=== PATIENT | female | born 1990 | race Caucasian/White ===

== ENCOUNTER → 2020-12-16 | Outpatient (REF) | payer BC | LOC: M LAB REF 16:00 | PROVIDERS: ATTEND Nurse Practitioner Family | DX: R11.2 Nausea with vomiting, unspecified (principal) ==

== ENCOUNTER → 2021-01-04 | Outpatient (CLI) | payer BC ==
[2021-01-04 18:14] LABS: BASO % 0.2 % (0.0-1.0); EOS % 0.3 % (0.0-3.0); HEMOGLOBIN 12.4 g/dl (12.0-15.5); MEAN CORPUSCULAR HEMOGLOBIN 28.6 pg (27.0-33.0); MEAN CORPUSCULAR HGB CONC 32.6 g/dl (32.0-36.5); MEAN CORPUSCULAR VOLUME 87.6 fl (80.0-96.0); MONO # 0.9 10^3/uL (0.0-0.8); MONO % 7.3 % (2.0-8.0); NEUTROPHILS % 74.9 % (36.0-66.0); PLATELET COUNT, AUTOMATED 336 10^3/uL (150-450); RED BLOOD COUNT 4.34 10^6/uL (4.00-5.40)
[2021-01-04 19:24] LABS: HEPATITIS C VIRUS ABY INDEX < 0.0 INDEX (<0.8); HIV 1&2 SCREEN CENTAUR NEGATIVE (NEGATIVE)
[2021-01-04 20:31] LABS: GC DNA AMPLIFICATION NEGATIVE (NEGATIVE)
== END ==
LOC: M PLALAB 15:47
PROVIDERS: ATTEND Advanced Practice Midwife
DX: Z34.91 Encounter for supervision of normal pregnancy, unspecified, first trimester (principal); Z3A.08 8 weeks gestation of pregnancy

== ENCOUNTER → 2021-01-30 | Outpatient (CLI) | payer BC | LOC: M PLALAB 10:11 | PROVIDERS: ATTEND Obstetrics & Gynecology | DX: Z34.81 Encounter for supervision of other normal pregnancy, first trimester (principal) ==

== ENCOUNTER → 2021-03-28 | Outpatient (CLI) | payer BC ==
--- NOTE | 2021-03-28 17:17 | REP ---
INDICATION: ANATOMY. COMPARISON: None. TECHNIQUE: Real-time sonographic evaluation of the gravid uterus performed. FINDINGS: Estimated gestational age is20 weeks 5 days, EDC 08/10/2021. Today's measurements indicate appropriate growth. Presentation: Variable Placenta posterior, grade 0, without evidence of placenta previa. heart rate is recorded at 139 beats per minute. Amniotic fluid is subjectively normal. Closed cervical length is measured at 3.7 cm. Biometry chart: BPD: 49 mm, 20 weeks 5 days, 49th percentile. HC: 186 mm, 20 weeks 6 days, 55th percentile AC: 164 mm, 21 weeks 3 days, 66th percentile Femur length: 36 mm, 21 weeks 3 days, 68th percentile HC to AC ratio: 1.13, normal range 1.06-1.24. Estimated weight: 418g, 79th percentile. anatomy: Cranium: Grossly normal Lateral Ventricles/Choroid Plexus: Grossly normal Posterior Fossa/Cerebellum: Grossly normal Nose/lips/profile: Grossly normal Four chamber heart: Not well seen due to position Right ventricular outflow tract: Not well seen due to position Left ventricular outflow tract: Not well seen due to position Left-sided stomach: Grossly normal Kidneys: Grossly normal Bladder: Grossly normal Cord Insertion: Grossly normal 3 vessel cord: Grossly normal Spine: Grossly normal IMPRESSION: Viable single intrauterine gestation as above. <Electronically signed by Gurmeet Malone > 03/28/21 [id number]
== END ==
LOC: M WHC 10:15
PROVIDERS: ATTEND Advanced Practice Midwife
DX: Z36.89 Encounter for other specified antenatal screening (principal); Z3A.20 20 weeks gestation of pregnancy

== ENCOUNTER → 2021-04-25 | Outpatient (CLI) | payer BC ==
--- NOTE | 2021-04-25 13:57 | REP ---
INDICATION: F/U ANATOMY COMPARISON: 03/28/2021 TECHNIQUE: Transabdominal obstetrical ultrasound with color Doppler evaluation. FINDINGS: Examination demonstrates a single live intrauterine in cephalic presentation. motion is identified by technologist. Placenta is noted posterior and grade 1 without evidence for placenta previa or abruption. Amniotic fluid volume is normal. Cervix measures 4.7 cm in length and appears closed.. Selected gestational age: 24 weeks 5 days with DREA 08/10/2021. Gestational age by current measurements 24 weeks 4 days with DREA 08/11/2021. FHR equals 135 beats per minute. Estimated weight 684 grams (25thpercentile). Anatomical assessment demonstrates normal structures including cranium, choroid plexus, cavum, cerebellum/posterior fossa, facial features, lungs, cardiac outflow tracts, diaphragm, stomach, cord insertion/three-vessel cord, kidneys/bladder, spine, and extremities. IMPRESSION: Single live intrauterine in cephalic presentation demonstrating appropriate interval growth. Continued limited evaluation of the heart due to positioning. <Electronically signed by Isrrael Reyes > 04/25/21 [id number]
== END ==
LOC: M WHC 10:18
PROVIDERS: ATTEND Obstetrics & Gynecology
DX: Z34.82 Encounter for supervision of other normal pregnancy, second trimester (principal); Z36.2 Encounter for other antenatal screening follow-up; Z3A.24 24 weeks gestation of pregnancy

== ENCOUNTER → 2021-05-09 | Outpatient (CLI) | payer BC ==
--- NOTE | 2021-05-09 11:46 | REP ---
INDICATION: F/U ANATOMY COMPARISON: 04/25/2021 TECHNIQUE: Transabdominal obstetrical ultrasound with color Doppler evaluation. FINDINGS: Examination demonstrates a single live intrauterine in variable presentation. motion is identified by technologist. Placenta is noted posterior and grade 1 without evidence for placenta previa or abruption. Amniotic fluid volume is normal. Cervix measures 4.4 cm in length and appears closed.. Selected gestational age: 26 weeks 5 days with DREA 08/10/2021. Gestational age by current measurements 27 weeks 1 day with DREA 08/07/2021. FHR equals 138 beats per minute. Estimated weight 1008 grams (49thpercentile). Anatomical assessment demonstrates normal structures including heart/ventricular outflow tracts.. IMPRESSION: Single live intrauterine in variable presentation demonstrating appropriate estimated weight. In conjunction with prior examination anatomical assessment is complete and normal. <Electronically signed by Isrrael Reyes > 05/09/21 [id number]
== END ==
LOC: M WHC 10:50
PROVIDERS: ATTEND Obstetrics & Gynecology
DX: Z34.82 Encounter for supervision of other normal pregnancy, second trimester (principal); Z36.2 Encounter for other antenatal screening follow-up; Z3A.26 26 weeks gestation of pregnancy

== ENCOUNTER → 2021-05-18 | Outpatient (CLI) | payer BC ==
[2021-05-18 13:50] LABS: HEMATOCRIT 32.1 % (36.0-47.0); HEMOGLOBIN 10.4 g/dl (12.0-15.5); MEAN CORPUSCULAR HGB CONC 32.4 g/dl (32.0-36.5); MEAN CORPUSCULAR VOLUME 89.4 fl (80.0-96.0); PLATELET COUNT, AUTOMATED 288 10^3/uL (150-450); RED BLOOD COUNT 3.59 10^6/uL (4.00-5.40); WHITE BLOOD COUNT 14.4 10^3/uL (4.0-10.0)
== END ==
LOC: M PLALAB 10:43
PROVIDERS: ATTEND Obstetrics & Gynecology
DX: Z36.89 Encounter for other specified antenatal screening (principal); Z3A.00 Weeks of gestation of pregnancy not specified

== ENCOUNTER → 2021-07-12 | Outpatient (REF) | payer BC | LOC: M PLALAB 10:12 | PROVIDERS: ATTEND Advanced Practice Midwife | DX: Z34.83 Encounter for supervision of other normal pregnancy, third trimester (principal); Z36.85 Encounter for antenatal screening for Streptococcus B ==

== ENCOUNTER 2021-08-11 16:33 | Inpatient (IN) | payer BC ==
[~2021-08-11] VITALS: Ht 162.6 cm; Wt 87.9 kg
[2021-08-11] VITALS (16 sets, daily range): BP systolic 134–190; BP diastolic 68–103
[2021-08-11] MEDS ORDERED: LACTATED RINGER'S 1000 ML IV STA (17:36)
[2021-08-11] MEDS ORDERED: TRANEXAMIC ACID INJection 1,000 MG in NS 100 ML IV PRN (17:40)
[2021-08-11] MEDS ORDERED: LR 1,000 ML IV SCH (17:40)
[2021-08-11] MEDS ORDERED: OXYTOCIN DRIP 30 UNITS in IV 1 EA IV PRN (17:40)
[2021-08-11 18:32] LABS: HEMATOCRIT 34.5 % (36.0-47.0); HEMOGLOBIN 11.5 g/dl (12.0-15.5); MEAN CORPUSCULAR HEMOGLOBIN 28.3 pg (27.0-33.0); MEAN CORPUSCULAR HGB CONC 33.3 g/dl (32.0-36.5); PLATELET COUNT, AUTOMATED 243 10^3/uL (150-450); RED BLOOD COUNT 4.06 10^6/uL (4.00-5.40); WHITE BLOOD COUNT 15.8 10^3/uL (4.0-10.0)
[2021-08-11 18:43] LABS: ALT/SGPT 22 U/L (12-78); BILIRUBIN,TOTAL 0.2 MG/DL (0.2-1.0); CREATININE FOR GFR 0.45 MG/DL (0.55-1.30); GLOMERULAR FILTRATION RATE > 60.0 (>60); LDH LACTATE DEHYDROGENASE 170 U/L (84-246); URIC ACID 5.5 MG/DL (2.6-6.0)
[2021-08-11] MEDS ORDERED: PRENTAB9 PO (18:46)
[2021-08-11] MEDS ORDERED: HOME MED LIST COMPLETE! XX SCH (18:50)
[2021-08-11] MEDS ORDERED: OXYTOCIN 30 UNITS IN 0.9% NaCl 500ML IV BAG (J2590) As Ordered ONE (18:52)
[2021-08-11 19:03] LABS: RSV AMPLIFICATION NEGATIVE (NEGATIVE)
[2021-08-11] MEDS ORDERED: METHYLERGONOVINE MALEATE 0.2 MG TAB PO PRN (19:20)
[2021-08-11] MEDS ORDERED: MEASLES,MUMPS,RUBELLA VACCINE INJ (MMR-II) (90707) SC SCH (19:20)
[2021-08-11] MEDS ORDERED: IBUPROFEN 800 MG TAB PO PRN (19:20)
[2021-08-11] MEDS ORDERED: RHOGAM 300 MCG (1500 IU) INJ (J2790) IM SCH (19:20)
[2021-08-11] MEDS ORDERED: ACETAMINOPHEN 500 MG TAB PO PRN (19:20)
[2021-08-11] MEDS ORDERED: OXYTOCIN DRIP 30 UNITS in IV 1 EA IV SCH (19:20)
[2021-08-11] MEDS ORDERED: DOCUSATE SODIUM 100MG CAPSULE PO PRN (19:20)
[2021-08-11 19:34] LABS: CORD GAS ABE A 0.1; CORD GAS HCO3 A 27.9 MEQ/L; CORD GAS O2 SAT A 35.9 %; CORD GAS PCO2 A 57.3 mmHg; CORD GAS PH A 7.305 UNITS; CORD GAS PO2 A 19.1 mmHg; CORD GAS TCO2 A 29.6 MEQ/L
[2021-08-11 19:36] LABS: CORD GAS ABE V -2.2; CORD GAS HCO3 V 22.7 MEQ/L; CORD GAS O2 SAT V 81.4 %; CORD GAS PCO2 V 39.6 mmHg; CORD GAS PH V 7.376 UNITS; CORD GAS PO2 V 38.8 mmHg; CORD GAS SBC V 22.2 MEQ/L; CORD GAS TCO2 V 23.9 MEQ/L
[2021-08-11] MEDS ORDERED: OXYTOCIN DRIP 30 UNITS in IV 1 EA IV ONE (20:20)
[2021-08-11] MEDS ORDERED: METHYLERGONOVINE MALEATE 0.2 MG/ML VIAL (J2210) IM ONE (20:20)
[2021-08-11] MEDS ORDERED: ONDANSETRON 4MG/2ML VIAL IV ONE (22:00)
[2021-08-11] MEDS: ACETAMINOPHEN TAB 650MG DOSE (2X325MG) PO PRN (22:42)
[2021-08-12 02:00] VITALS: BP 124/75
[2021-08-12] MEDS: IBUPROFEN 600MG TAB PO PRN ×3 (04:49→19:39)
[2021-08-12 06:00] VITALS: BP 138/78
[2021-08-12] MEDS: PRENATAL VITAMINS CHEWABLE TABLET PO SCH (07:43)
[2021-08-12] MEDS: ACETAMINOPHEN TAB 650MG DOSE (2X325MG) PO PRN (07:43)
[2021-08-12 10:00] VITALS: BP 132/73
[2021-08-12 13:54] VITALS: BP 128/70
[2021-08-12 18:08] VITALS: BP 138/80
[2021-08-12 22:00] VITALS: BP 131/65
[2021-08-13 02:00] VITALS: BP 123/66
[2021-08-13 05:30] VITALS: BP 120/79
[2021-08-13] MEDS: PRENATAL VITAMINS CHEWABLE TABLET PO SCH (07:36)
[2021-08-13] MEDS: ACETAMINOPHEN TAB 650MG DOSE (2X325MG) PO PRN ×2 (07:36→12:20)
== END 2021-08-13 13:52 | disposition home or self-care (01) | DRG 560 ==
LOC: M LDO 16:33 → M LDI 17:29 → M OBS 22:17
PROVIDERS: ADMIT Obstetrics & Gynecology; ATTEND Obstetrics & Gynecology
PROC: 10E0XZZ Delivery of Products of Conception, External Approach (ICD-10-PCS; principal; 2021-08-11)
PROC: 10907ZC Drainage of Amniotic Fluid, Therapeutic from Products of Conception, Via Natural or Artificial Opening (ICD-10-PCS; 2021-08-11)
DX: O80 Encounter for full-term uncomplicated delivery (principal); Z3A.40 40 weeks gestation of pregnancy; Z37.0 Single live birth

== ENCOUNTER 2022-08-11 09:03 | Emergency (ER) | payer BC ==
[~2022-08-11] VITALS: Ht 162.6 cm; Wt 74.1 kg
[~2022-08-11 09:03] MED LIST: PRENTAB9 PO
[2022-08-11 09:11] VITALS: BP 133/79
[2022-08-11] MEDS ORDERED: IBUPROFEN 800 MG TAB PO ONE (11:10)
[2022-08-11] MEDS ORDERED: IBUP80TA PO (11:24)
== END 2022-08-11 11:31 | disposition home or self-care (01) ==
LOC: M ED 09:03 → EDBD 09:03 → M ED 11:31
DX: S49.91XA Unspecified injury of right shoulder and upper arm, initial encounter (principal); W07.XXXA Fall from chair, initial encounter; Y92.009 Unspecified place in unspecified non-institutional (private) residence as the place of occurrence of the external cause; Z87.891 Personal history of nicotine dependence

== ENCOUNTER → 2022-08-22 | Outpatient (CLI) | payer BC ==
[~2022-08-22] MED LIST changes: +IBUP80TA PO
== END ==
LOC: M PLAIMG 08:23
PROVIDERS: ATTEND Orthopaedic Surgery
DX: S42.141A Displaced fracture of glenoid cavity of scapula, right shoulder, initial encounter for closed fracture (principal); X58.XXXA Exposure to other specified factors, initial encounter; Y92.9 Unspecified place or not applicable; Y93.9 Activity, unspecified; Y99.9 Unspecified external cause status

== ENCOUNTER → 2022-09-13 | Outpatient (CLI) | payer BC | LOC: M PLAIMG 08:43 | PROVIDERS: ATTEND Orthopaedic Surgery | DX: S42.141A Displaced fracture of glenoid cavity of scapula, right shoulder, initial encounter for closed fracture (principal); M25.411 Effusion, right shoulder; X58.XXXA Exposure to other specified factors, initial encounter; Y92.9 Unspecified place or not applicable; Y93.9 Activity, unspecified; Y99.9 Unspecified external cause status; M65.811 Other synovitis and tenosynovitis, right shoulder ==

== ENCOUNTER 2022-10-03 15:11 | Outpatient (RCR) | payer BC | END 2022-10-17 | LOC: M PT 15:11 | PROVIDERS: ATTEND Student in an Organized Health Care Education/Training Program | DX: S42.141A Displaced fracture of glenoid cavity of scapula, right shoulder, initial encounter for closed fracture (principal); X58.XXXA Exposure to other specified factors, initial encounter; Y92.9 Unspecified place or not applicable; Y93.9 Activity, unspecified; Y99.9 Unspecified external cause status ==

== ENCOUNTER → 2024-11-18 | Outpatient (CLI) | payer BC | LOC: M WUC 11:40 | PROVIDERS: ATTEND Nurse Practitioner Family | DX: M41.9 Scoliosis, unspecified (principal) ==

== ENCOUNTER → 2024-12-22 | Outpatient (REF) | payer BC ==
[2024-12-24 14:22] LABS: HPV APTIMA Not Detected (Not Detected)
== END ==
LOC: M SFHCWAGY 16:57
PROVIDERS: ATTEND Advanced Practice Midwife
DX: Z12.4 Encounter for screening for malignant neoplasm of cervix (principal)
CPT/HCPCS: 87624; G0123

== ENCOUNTER → 2025-01-01 | Outpatient (CLI) | payer BC ==
[2025-01-01 14:07] LABS: LUTEINIZING HORMONE 10.7 mIU/ML
[2025-01-01 14:08] LABS: ESTRADIOL 114.5 PG/ML
[2025-01-01 14:10] LABS: PROGESTERONE 0.33 NG/ML
== END ==
LOC: M PLALAB 09:14
PROVIDERS: ATTEND Advanced Practice Midwife
DX: R23.2 Flushing (principal)